=== PATIENT | male | born 1955 | race African-American/Black ===

== ENCOUNTER 2023-03-28 12:56 | Emergency (ER) | payer MEDICARE, SELFPAY ==
--- NOTE | ~2023-03-28 | XR_ITS ---
Clinical Indication: Shortness of breath PA and lateral views of the chest: Comparison: None Findings: Suspected focal hazy opacity right upper lobe. Left lung is clear.. Cardiomediastinal silh ouette is within normal limits. Probable calcified lymph nodes at the upper mediastinum. Bones and so ft tissues are unremarkable. Impression: Suspected subtle focal right upper lobe pneumonia. Calcified lymph nodes in the superior mediastinum. Reviewed, dictated and finalized at location . Impression: Suspected subtle focal right upper lobe pneumonia. Calcified lymph nodes in the superior mediastinum.
--- NOTE | 2023-03-28 13:11 | ED.URI ---
HPI - URI/Sore Throat General Chief Complaint: Upper Respiratory Infection Stated Complaint: SOB/Cough Time Seen by Provider: 03/28/23 13:11 Source: patient Mode of arrival: ambulatory Limitations: no limitations History of Present Illness HPI Narrative: Patient is a 67-year-old male who presents with 3 days of shortness of breath. Patient states he has been using rescue inhaler every 2 hours with worsening shortness of breath at night. Patient states inhaler does work for a short amount of time. Denies being out of inhaler. Does smoke half a pack of cigarettes a day. Denies any congestion, ear pain, sore throat, sinus pressure, fever, chills, nausea, vomiting, diarrhea. Is still able to speak in full sentences. History of COPD, pneumonia, high blood pressure. Related Data Home Medications Medication Instructions Recorded Confirmed albuterol sulfate 90 mcg/actuation inhalation 03/28/23 aerosol inhaler amlodipine 10 mg tablet mg 03/28/23 aspirin 81 mg chewable tablet 03/28/23 clonidine HCl 0.3 mg tablet mg 03/28/23 gabapentin 300 mg capsule mg 03/28/23 metoprolol tartrate 25 mg tablet mg 03/28/23 triamterene 37.5 tablet 03/28/23 mg-hydrochlorothiazide 25 mg tablet Allergies Allergy/AdvReac Type Severity Reaction Status Date / Time No Known Allergies Allergy Verified 03/28/23 13:24 Review of Systems Review of Systems: All systems reviewed & are unremarkable except as noted in HPI and below Constitutional: Constitutional: Denies body ache(s), Denies chills, Denies fatigue, Denies fever(s), Denies headache(s), Denies malaise and Denies weakness Eyes: Eyes: Denies blurry vision, Denies itchy eyes and Denies loss of vision ENT: Denies otalgia, Denies headache(s), Denies nasal congestion, Denies sinus pain and Denies sore throat Cardiovascular: Cardiovascular: Denies chest pain, Denies irregular heart rhythm and Reports dyspnea Respiratory: Respiratory: Reports cough and Reports dyspnea Gastrointestinal: Gastrointestinal: Denies abdominal pain, Denies diarrhea, Denies nausea and Denies vomiting Musculoskeletal: Musculoskeletal: Denies back pain, Denies myalgias and Denies arthralgias Integumentary/Breasts: Skin/Breast: Denies pruritus and Denies rash Neurologic: Denies headache(s), Denies loss of vision and Denies weakness Psychiatric: Psychiatric: Reports no additional psychiatric complaints Endocrine: Endocrine: Denies fatigue Allergic/Immunologic: Allergic/Immunologic: Denies itchy eyes PMFSH Comments At time of signature, agree with nursing past medical, surgical, social and family history. There is no relevant family history pertinent to the presenting complaint. Exam Const: General: cooperative, healthy appearing, comfortable, no acute distress and well nourished Nutritional Appearance: well nourished Orientation/consciousness: patient oriented x3 Limitations: no limitations HENMT: Head: normal to inspection, normocephalic and atraumatic Ears: hearing grossly normal bilaterally, external ears normal, TM's normal bilaterally, EAC's normal and no periauricular adenopathy Face/Nose/Sinus: Normal external nose present, Normal nasal mucous membranes and turbinates present, normal facial exam, sinuses nontender and face symmetric Face and sinus: normal facial exam, sinuses nontender and face symmetric Mouth: Yes Normal oral and palatal mucosa present, Yes lip normal, Yes tongue normal, Yes Normal salivary glands and ducts present, Yes oropharynx normal and Yes moist mucous membranes Teeth and gingiva: dentition normal Throat: posterior oropharynx normal, tonsils normal and uvula midline Eyes: General: appearance normal, both eyes and all related structures Alignment and Position: alignment normal and position normal Periorbital: periorbital findings normal Eyelids: eyelids normal Pupils: Equal, round and reactive pupils present Neck: Neck: normal visual inspection, full ROM, no lymphad
[2023-03-28 13:16] VITALS: BP 167/80; PULSE 85; RESP 24; RESP 28; TEMP 37.1; O2SAT 92; O2SAT 94
[2023-03-28 13:25] VITALS: BP 167/80; PULSE 85; RESP 28; TEMP 37.1; O2SAT 92
[2023-03-28] MEDS: ALBUTEROL SULFATE NEB 2.5 MG/3 ML INH INHALATION (13:32)
[2023-03-28] MEDS: IPRATROPIUM BR 0.02% INH SOLN 0.5 MG/2.5 ML VIAL INHALATION (13:32)
[2023-03-28 15:29] VITALS: RESP 22; O2SAT 96
== END 2023-03-28 15:04 | disposition home or self-care (01) ==
PROVIDERS: Emergency Provider Nurse Practitioner Family
DX: J18.1 Lobar pneumonia, unspecified organism (principal); I10 Essential (primary) hypertension; J44.9 Chronic obstructive pulmonary disease, unspecified
CPT/HCPCS: 71046; 94640; 99203; G0463

== ENCOUNTER 2023-03-28 23:36 | Inpatient (IN) | payer MEDICARE, SELFPAY ==
--- NOTE | ~2023-03-28 | XR_ITS ---
Portable chest x-ray Comparison: 03/28/2023 at 2:29 PM Clinical History: Dyspnea Findings: Probable minimal developing bibasilar pulmonary edema. Underlying COPD is likely present. Cardiomediastinal silhouette is stable. Bones and soft tissues are unremarkable. Impression: Probable minimal developing bibasilar pulmonary edema. Underlying COPD. Reviewed, dictated and finalized at [facility]. Impression: Probable minimal developing bibasilar pulmonary edema. Underlying COPD.
[2023-03-28 23:38] VITALS: BP 184/86; PULSE 120; RESP 28; O2SAT 100
[2023-03-28 23:42] VITALS: PULSE 120
--- NOTE | 2023-03-28 23:48 | ECG_ITS ---
Measurements Intervals [place] Rate: 113 P: 80 SC: 196 QRS: -2 QRSD: 106 T: 84 QT: 299 QTc: 411 Interpretive Statements SINUS TACHYCARDIA INCOMPLETE RIGHT BUNDLE BRANCH BLOCK CONSIDER INFERIOR INFARCT, AGE INDETERMINATE ST-T WAVE ABNORMALITY IN LATERAL LEADS- CONSIDER ISCHEMIA ABNORMAL ECG NO PREVIOUS ECG AVAILABLE FOR COMPARISON Electronically Signed On 03-31-2023 21:53:49 CDT by Chad Pereira D.O.
[2023-03-29] VITALS (60 sets, daily range): BP systolic 139–189; BP diastolic 75–102; PULSE 72–117; RESP 12–33; TEMP 36.7–37; O2SAT 94–100; BMI 33.7
[2023-03-29] MEDS: LEVALBUTEROL NEB 1.25 MG/3 ML INHALATION
--- NOTE | 2023-03-29 | ECHO_ITS ---
Patient Info Name: Krish Argueat Age: 67 years : 1955 Gender: Male Ht: 69 in Wt: 227 lbs BSA: 2.27 m2 HR: 80 bpm BP: 142 / 84 mmHg Technical Quality: Good Exam Date: 03/29/2023 2:38 PM Exam Location: [facility] Pulmonary Patient Status: Inpatient Admit Date: 03/29/2023 Staff Ordering Physician: Kriss Adler DO Truck Engine Assembler: Ami Vargas RDCS Attending Provider: Jaiden Rodrigues MD Referring Physician: Nayely MATTHEWS; Exam Type: CA echo doppler color flow Study Info Indications R60.9 - Edema, unspecified R06.02 - Shortness of breath Complete two-dimensional, color flow and Doppler transthoracic echocardiogram is performed. Summary 1. Complete two-dimensional, color flow and Doppler transthoracic echocardiogram is performed. 2. Left ventricular chamber dimension is normal. 3. Left ventricular systolic function is normal, estimated at 60-65%. 4. The left ventricular diastolic function is grade I diastolic dysfunction. 5. E/e' 8 is minimally elevated. 6. Global longitudinal strain is normal at -20.2%. 7. There is mild aortic valve sclerosis. 8. No pulmonary hypertension, estimated pulmonary arterial systolic pressure is 18 mmHg. Left Ventricle E/e' 8 is minimally elevated. Global longitudinal strain is normal at -20.2%. Left ventricular chamber dimension is normal. Left ventricular systolic function is normal, estimated at 60-65%. The left ventricular diastolic function is grade I diastolic dysfunction. Right Ventricle Right ventricular chamber dimension is normal. Right ventricular systolic function is normal. Left Atria Left atrial chamber dimension is normal. Right Atria Right atrial chamber dimension is normal. Aortic Valve The aortic valve is trileaflet. There is mild aortic valve sclerosis. There is no aortic valve stenosis. There is no aortic valve regurgitation. Pulmonic Valve There is no pulmonic regurgitation. Mitral Valve There is no mitral valve stenosis. There is no mitral valve regurgitation. Tricuspid Valve There is no tricuspid valve regurgitation. No pulmonary hypertension, estimated pulmonary arterial systolic pressure is 18 mmHg. Pericardium/Pleural There is no pericardial effusion. Inferior Vena Cava Normal inferior vena cava with >50% collapse upon inspiration consistent with normal right atrial pressure, 5 mmHg. Aorta The aortic root size at the sinus of Valsalva is normal. Left Ventricular Outflow Tract Name Value Normal LVOT 2D LVOT Diameter 2.0 cm LVOT Doppler LVOT Peak Gradient 6 mmHg LVOT Mean Gradient 3 mmHg LVOT VTI 25 cm LVOT VTI/AV VTI Ratio 0.9 LVOT Stroke Volume 80 ml LVOT CO 6.7 l/min LVOT CI 2.9 l/min/m2 Pulmonic Valve Name Value Normal RVOT Doppler RV
[2023-03-29] MEDS: methylPREDNISolone SOD SUCC 125 MG VIAL IV PUSH (00:27)
[2023-03-29 00:49] LABS: Basophils Percent Auto 0.2 % (0.2-1.2); Eosinophils Percent Auto 0.2 % (0-4.4); Hematocrit 40.5 % (42.0-52.0); Hemoglobin 13.4 g/dL (14.0-18.0); Immature Granulocyte Absolute 0.07 K/mm3 (0.00-0.031); Immature Granulocyte Percent A 0.4 % (0-0.5); Lymphocytes Absolute Auto 2.13 K/mm3 (0.9-3.2); Lymphocytes Percent Auto 13.3 % (18.3-44.2); Mean Corpuscular HGB Conc 33.1 g/dl (32-36); Mean Corpuscular Hemoglobin 29.3 pg (26-34); Mean Corpuscular Volume 88.6 fl (80-100); Mean Platelet Volume 10.2 fl (7.4-10.4); Monocytes Absolute Auto 1.5 K/mm3 (0.1-0.6); Monocytes Percent Auto 9.2 % (2.6-8.5); Neutrophils Absolute Auto 12.2 K/mm3 (1.3-6.7); Neutrophils Percent Auto 76.7 % (45.5-73.1); Platelet Count Result 216 k/mm3 (150-375); Red Blood Count 4.57 M/mm3 (4.6-6.20); Red Cell Distribution Width 13.7 % (11.5-14.5)
[2023-03-29 01:01] LABS: INR 1.2; Prothrombin Time 15.4 Seconds (11.1-14.7)
[2023-03-29 01:02] LABS: Partial Thromboplastin Time 39.8 SECONDS (22.3-36.8)
[2023-03-29 01:03] LABS: Alanine Aminotransferase 20 U/L (6-50); Albumin Level 4.5 g/dL (3.5-5.1); Alkaline Phosphatase 103 U/L (38-126); Anion Gap 7 mmol/L (8-16); Aspartate Amino Transferase 35 U/L (17-59); Bilirubin,Total 0.5 mg/dL (0.2-1.3); Blood Urea Nitrogen 17 mg/dL (9-20); Calcium 9.2 mg/dL (8.4-10.2); Carbon Dioxide 29 mmol/L (22-30); Chloride 104 mmol/L (98-107); Estimated CRCL calculation 67 ml/min; Estimated Glomerular Filt Rate > 60; Glucose 110 mg/dL (65-110); Magnesium 1.7 mg/dL (1.6-2.3); Potassium 3.2 mmol/L (3.4-5.0); Sodium 140 mmol/L (137-145)
[2023-03-29 01:04] LABS: Lactic Acid Reflex 1.1 mmol/L (0.7-2.0)
[2023-03-29 01:14] LABS: NT Pro B Type Natriuretic Pept 431 pg/mL (19.9-100); Troponin I < 0.012 ng/mL (0.000-0.034)
[2023-03-29 01:29] LABS: Influenza A QL RT-PCR Negative (Negative); Influenza B QL RT-PCR Negative (Negative); RSV RNA, RT-PCR Negative (Negative); SARS-CoV-2 RNA PCR Negative (Negative)
--- NOTE | 2023-03-29 01:31 | ED.GENADULT ---
HPI - General Adult General Chief complaint: Shortness of Breath/Dyspnea Stated complaint: sob Time Seen by Provider: 03/28/23 23:45 History of Present Illness HPI narrative: Patient is a 67-year-old gentleman who presents to the emergency department with chief complaint of shortness of breath. Patient [facility] that [facility] and was diagnosed with pneumonia. Patient reports he is taking antibiotics and was started on steroids the patient states he went home was doing okay and reports that now he started getting more more short of breath EMS was called and the patient was saturating 90% on room air but was extremely tachypneic received a DuoNeb by EMS and upon arrival to the emergency department was still having moderate tachypnea even on the nebulizer. Patient reports the cough been nonproductive Related Data Home Medications Medication Instructions Recorded Confirmed albuterol sulfate 90 mcg/actuation inhalation 03/28/23 aerosol inhaler amlodipine 10 mg tablet mg 03/28/23 aspirin 81 mg chewable tablet 03/28/23 clonidine HCl 0.3 mg tablet mg 03/28/23 gabapentin 300 mg capsule mg 03/28/23 metoprolol tartrate 25 mg tablet mg 03/28/23 triamterene 37.5 tablet 03/28/23 mg-hydrochlorothiazide 25 mg tablet Allergies Allergy/AdvReac Type Severity Reaction Status Date / Time No Known Allergies Allergy Verified 03/28/23 23:43 Review of Systems Review of Systems: A 10 system review of systems was completed on the patient and is negative except for what is stated in the HPI. Nursing and ancillary documentation was reviewed. Exam Narrative: GENERAL: Well-appearing, well-nourished, and in mild acute respiratory distress. HEAD: Normocephalic, atraumatic. EYES: PERRLA and EOMI. ENT: Nares clear, no rhinorrhea or epistaxis. Mucous membranes moist. NECK: Supple. CHEST: Diminished breath sounds to auscultation bilaterally, scattered wheezes. Mild respiratory distress. HEART: Regular rate and rhythm. No murmur heard. Normal peripheral pulses. ABDOMEN: Soft, nontender, nondistended, normal active bowel sounds. EXTREMITIES: Normal range of motion. No edema. SKIN: Warm, dry, no rash. NEURO: No focal deficits. Alert and oriented x3. PSYCH: Normal mood and affect. Course Vital Signs Vital signs: Vital Signs Pulse Rate 120 H 03/28/23 23:38 Respiratory Rate 28 H 03/28/23 23:38 Blood Pressure 184/86 H 03/28/23 23:38 Pulse Oximetry 100 03/28/23 23:38 Oxygen Delivery Non-Rebreather Mask 03/28/23 23:38 Oxygen Flow Rate 10 03/28/23 23:38 Pulse Rate 88 03/29/23 02:41 Respiratory Rate 12 03/29/23 02:41 Blood Pressure 178/96 H 03/29/23 02:41 Pulse Oximetry 100 03/29/23 02:41 Oxygen Delivery BiPAP 03/29/23 00:00 Oxygen Flow Rate 10 03/28/23 23:38 Medical Decision Making MDM Narrative Medical decision making narrative: Differential diagnosis includes pneumonia, ACS, CHF, COPD exacerbation, Patient was extremely tachypneic on original arrival and was in moderate respiratory distress. Patient was placed on BiPAP upon arrival which had significant improvement. The patient has been able to be weaned off of BiPAP and is now doing much better and is on 2 L nasal cannula. EKG is sinus tachycardia rate of 113 nonspecific incomplete right bundle branch block no ST elevation or ST depression Laboratory studies were obtained which showed a white count of 16 electrolytes showed a BNP of 431 Pro-Richard 0.2 initial troponin was less than 0.012 repeat troponin is 0.021. Chest x-ray redemonstrates the findings on the chest x-ray from urgent care yesterday The patient was given Solu-Medrol in the emergency department and was given Rocephin and Zithromax. The case was discussed with the hospitalist and the patient be admitted to the hospitalist service. Vital Signs Vital Signs: Vital Signs Pulse Rate 120 H 03/28/23 23:38 Respiratory Rate 28 H 0
[2023-03-29 01:41] LABS: Appearance Urine Clear (Clear); Bacteria Urine None Seen /hpf; Bilirubin Urine Negative (Negative); Blood Urine 1+ (Negative); Color Urine Yellow (Yellow); Glucose Urine UA Negative (Negative); Ketones Urine Negative (Negative); Leukocyte Esterase Ur Negative LEU/UL (Negative); Nitrate Urine Negative (Negative); Non Pathogenic Casts 0-2; Protein Urine 3+ mg/dL (Negative); Specific Grav Ur 1.016 (1.001-1.035); Squamous Epithelial Cell Urine None seen /hpf (Few); Urobilinogen Urine 0.2 mg/dL (<2.0); WBC Urine 0-5 /hpf
[2023-03-29 01:52] LABS: Add Urine Microscopic? YES
[2023-03-29 01:56] LABS: Procalcitonin 0.2 ng/mL
[2023-03-29 03:23] LABS: Troponin I 0.021 ng/mL (0.000-0.034)
[2023-03-29] MEDS: AZITHROMYCIN 500 MG/NS 250 ML 500 MG/250 ML BAG 250 MG IVPB (04:38)
[2023-03-29] MEDS: methylPREDNISolone SOD SUCC 125 MG VIAL 60 MG IV PUSH ×3 (07:00→21:31)
--- NOTE | 2023-03-29 08:55 | PM.IMHP ---
H&P: HPI History of Present Illness Date/Time: 03/29/23 08:55 Chief Complaint: sob Narrative: 67-year-old male presenting with shortness of breath after being diagnosed with pneumonia at urgent care yesterday. He was given antibiotics and steroids but is continuing to feel progressively more short of breath and weak. In the ER, he was found to be 90% on room air and quite tachypneic. He initially was placed on BiPAP due to respiratory distress, was able to be weaned to 2 L nasal cannula after DuoNeb. EKG was tachycardic with an incomplete right bundle branch block but no signs of acute ischemia. Troponin was negative x2. He was started on Solu-Medrol, Rocephin, azithromycin. Chest x-ray showed edema with COPD, no infiltrate. Chest x-ray from 03/28 showed possible right upper lobe infiltrate. Personal evaluation of the chest x-ray does look like possible infiltrate in right upper lobe on both chest x-rays. Cephalized edema, while present, appears minimal. Hyperinflation consistent with COPD noted. Review of Systems Review of Systems: 12 point review of systems was assessed and was negative except as noted in the HPI [facility] Past Medical History Medical History COPD (chronic obstructive pulmonary disease) Heart failure Hypertension Nicotine dependence Family History Family History Grandparent Diabetes mellitus Father Cancer Mother Hypertension Social History Social History Smoking packs per day: 0.5 Smoking cigarettes per day: 10.0 Years smoked: 40 Smoking pack-years: 20.00 Smoking status: Current every day smoker Tobacco type: cigarettes Alcohol intake: current Drinks per week: 2 Substance use: current Substance use type: marijuana Last use: 1 month ago Lack of Transportation: No Lack of Food: Never True Current Housing: I Have Housing Concerned About Future Housing: No Difficulty Paying Gas/Electric Bills: No Difficulty Paying for Meds: No Currently Unemployed: No Education: Don't Know Difficulty w/ Childcare or Family Care: No Spiritual care concerns: No Meds Home Medications and Allergies Home Medications Medication Instructions Recorded Confirmed Type albuterol sulfate 2.5 mg/0.5 mL 5 mg inhalation Q6H PRN shortness 03/28/23 03/29/23 Rx solution for nebulization of breath or wheezing #30 ea albuterol sulfate 90 mcg/actuation 2 puff inhalation Q1-4H PRN 03/28/23 03/29/23 History aerosol inhaler Shortness Of Breath amlodipine 10 mg tablet 10 mg PO DAILY 03/28/23 03/29/23 History amoxicillin 875 mg-potassium 1 tablet PO BID 10 days #20 tabs 03/28/23 Rx clavulanate 125 mg tablet aspirin 81 mg chewable tablet 81 mg PO DAILY 03/28/23 03/29/23 History clonidine HCl 0.3 mg tablet 0.3 mg PO BID 03/28/23 03/29/23 History doxycycline monohydrate 100 mg 100 mg PO BID 5 days #10 tabs 03/28/23 Rx tablet gabapentin 300 mg capsule 600 mg PO TID 03/28/23 03/29/23 History ipratropium bromide 0.02 % 2.5 ml inhalation Q6H PRN 03/28/23 Rx solution for inhalation shortness of breath or wheezing #75 mL methylprednisolone 4 mg tablets in See Rx Instructions PO .COMPLEX 03/28/23 Rx a dose pack (gauzzrol (Abilio)) #21 ea metoprolol tartrate 25 mg tablet 25 mg PO BID 03/28/23 03/29/23 History nebulizer and compressor #1 ea 03/28/23 Rx triamterene 37.5 1 tablet PO DAILY 03/28/23 03/29/23 History mg-hydrochlorothiazide 25 mg tablet apixaban 5 mg tablet (Eliquis) 5 mg PO BID 03/29/23 03/29/23 History hydrocodone 7.5 mg-acetaminophen 1 tablet PO TID PRN Pain 03/29/23 03/29/23 History 325 mg tablet tamsulosin 0.4 mg BYMOUTH DAILY 03/29/23 03/29/23 History Allergies Allergy/AdvReac Type Severity Reaction Status Date / Time No Known Allergies Allergy Verified 03/28/23 23:43 V
[2023-03-29] MEDS: IPRATROPIUM BR 0.02% INH SOLN 0.5 MG/2.5 ML VIAL INHALATION ×4 (09:15→21:29)
[2023-03-29] MEDS: LEVALBUTEROL NEB 1.25 MG/3 ML 0.63 MG INHALATION ×3 (09:15→21:29)
[2023-03-29] MEDS: HYDROcodone/acetaminophen (*CRX) 7.5-325 MG TABLET 1 TAB PO ×3 (09:26→20:22)
[2023-03-29 09:41] LABS: Lactic Acid Reflex 1.5 mmol/L (0.7-2.0)
[2023-03-29 09:52] LABS: D Dimer 0.69 ug/mL (<0.48)
[2023-03-29 09:56] LABS: Troponin I 0.018 ng/mL (0.000-0.034)
[2023-03-29 10:02] LABS: Procalcitonin 0.2 ng/mL
[2023-03-29 10:28] LABS: CRP 17.2 mg/dL (<1.0)
[2023-03-29] MEDS: BUDESONIDE RESPULE NEB 0.5 MG/2 ML AMP INHALATION ×2 (11:02→21:29)
--- NOTE | 2023-03-29 12:21 | ADMGEN ---
This patient, Krish Argueta, was admitted to Medical Room 251-01. Patient/family oriented to hospital policies and general routines including ID bracelet, bed and alarms, visiting hours, pain management, procedures, bathroom and other care routines, personal items, smoking policy, room service/diet, and visiting hours. Information on how to activate the Rapid Response Team has been discussed. Patient/Family are encouraged to report perceived risks to care and to ask questions if they do not understand what they are told or what they should do.
[2023-03-29] MEDS: guaiFENesin 600 MG/DEXTROMETHORPHAN 30 MG SR TAB 12 HR 1 TAB PO ×2 (15:23→20:21)
[2023-03-29] MEDS: amLODIPine BESYLATE 5 MG TABLET 10 MG PO (15:23)
[2023-03-29] MEDS: GABAPENTIN 300 MG CAPSULE 600 MG PO (15:23)
[2023-03-29] MEDS: ALBUTEROL SULFATE NEB 2.5 MG/3 ML INH 5 MG INHALATION (18:05)
[2023-03-29] MEDS: APIXABAN 5 MG TABLET PO (20:21)
[2023-03-29] MEDS: METOPROLOL TARTRATE 25 MG TABLET PO (20:21)
[2023-03-29] MEDS: cloNIDine HCL 0.1 MG TABLET 0.3 MG PO (20:22)
[2023-03-30] VITALS (12 sets, daily range): BP systolic 127–143; BP diastolic 69–78; PULSE 64–100; RESP 14–24; TEMP 36.9–37; O2SAT 94–99
[2023-03-30] MEDS: IPRATROPIUM BR 0.02% INH SOLN 0.5 MG/2.5 ML VIAL INHALATION ×3 (02:10→12:39)
[2023-03-30] MEDS: LEVALBUTEROL NEB 1.25 MG/3 ML 0.63 MG INHALATION ×3 (02:10→12:39)
[2023-03-30] MEDS: methylPREDNISolone SOD SUCC 125 MG VIAL 60 MG IV PUSH ×2 (05:06→13:18)
[2023-03-30] MEDS: HYDROcodone/acetaminophen (*CRX) 7.5-325 MG TABLET 1 TAB PO ×2 (05:46→12:48)
[2023-03-30] MEDS: BUDESONIDE RESPULE NEB 0.5 MG/2 ML AMP INHALATION (07:10)
--- NOTE | 2023-03-30 09:15 | PM.IMPN ---
Progress Note: A&P Assessment and Plan (1) COPD (chronic obstructive pulmonary disease): Code(s): J44.9 - Chronic obstructive pulmonary disease, unspecified Status: Acute Assessment and Plan: nebs, steroids, smoking cessation recommended, nicorette available Will need outpatient PFTs at discharge 03/30: Weaned to room air today (2) Heart failure: Code(s): I50.9 - Heart failure, unspecified Status: Acute Assessment and Plan: Appears euvolemic Echo 03/29 showed EF 60-65%, grade 1 diastolic dysfunction, no valvular disease nor pulmonary hypertension noted (3) Nicotine dependence: Code(s): F17.200 - Nicotine dependence, unspecified, uncomplicated Status: Acute Assessment and Plan: smoking cessation recommended, nicotine patch offered, requested nicorette instead, patch gives him a rash (4) Hypertension: Code(s): I10 - Essential (primary) hypertension Status: Acute Assessment and Plan: blood pressures reviewed 03/30 Stable on home medications, continue triamterene/hydrochlorothiazide, amlodipine, clonidine (5) Community acquired pneumonia: Qualifiers: Laterality: unspecified laterality Qualified Code(s): J18.9 - Pneumonia, unspecified organism Code(s): J18.9 - Pneumonia, unspecified organism Status: Acute Assessment and Plan: cont rocephin + azithromycin, started 03/28, end date for azithromycin 04/01, end date for Rocephin (cefdinir at discharge) 04/03 Plan DVT prophylaxis with SCDs GI prophylaxis not indicated Code status full code Subjective Date/time seen: 03/30/23 09:15 Interval history: 67-year-old male presenting with shortness of breath after being diagnosed with pneumonia at urgent care, found to have COPD, CAP and suspected HF. No overnight events noted. No chest pain or shortness of breath. No nausea, vomiting or diarrhea. No fevers or chills. Review of Systems Review of Systems: 12 point review of systems was assessed and was negative except as noted in the HPI Exam Narrative: General: No acute distress, alert and oriented per baseline HEENT: Atraumatic, normocephalic, mucous membranes moist CV: Regular rate and rhythm, S1, S2 Lungs: Diminished air entry, scattered wheezes Abdomen: Soft, nontender, nondistended Extremities: Normal to inspection, trace edema, non pitting Skin: No rashes noted, no lesions or wounds seen Psych: Euthymic, normal affect Objective Data Vital Signs Vital Signs: Vital Signs - 24 hr 03/29/23 09:17 03/29/23 09:24 03/29/23 09:25 Temperature Pulse Rate Respiratory Rate 22 H Blood Pressure Pulse Oximetry 98 100 Oxygen Delivery Nasal Cannula Oxygen Flow Rate 2 Fraction of Inspired Oxygen 03/29/23 09:35 03/29/23 10:08 03/29/23 10:15 Temperature Pulse Rate Respiratory Rate Blood Pressure Pulse Oximetry 100 99 100 Oxygen Delivery Oxygen Flow Rate Fraction of Inspired Oxygen 03/29/23 10:57 03/29/23 11:53 03/29/23 13:02 Temperature 98.6 F Pulse Rate 74 Respiratory Rate 18 Blood Pressure 139/86 142/84 H Pulse Oximetry 98 100 97 Oxygen Delivery Nasal Cannula Oxygen Flow Rate 2 Fraction of Inspired Oxygen 03/29/23 12:25 03/29/23 14:11 03/29/23 14:00 Temperature 98.0 F 98.3 F Pulse Rate 76 74 78 Respiratory Rate 20 20 18 Blood Pressure 153/92 H 151/89 H Pulse Oximetry 98 97 Oxygen Delivery Oxygen Flow Rate Fraction of Inspired Oxygen 03/29/23 16:00 03/29/23 18:05 03/29/23 18:12 Temperature Pulse Rate 78 90 88 Respiratory Rate 18 20 Blood Pressure Pulse Oximetry Oxygen Delivery Oxygen Flow Rate Fraction of Inspired Oxygen 03/29/23 20:12 03/29/23 20:21 03/29/23 20:00 Temperature 98.6 F Pulse Rate 92 86 91 Respiratory Rate 20 Blood Pressure 173/78 H Pulse Oximetry 94 Oxygen Delivery
[2023-03-30] MEDS: guaiFENesin 600 MG/DEXTROMETHORPHAN 30 MG SR TAB 12 HR 1 TAB PO (09:33)
[2023-03-30] MEDS: amLODIPine BESYLATE 5 MG TABLET 10 MG PO (09:34)
[2023-03-30] MEDS: METOPROLOL TARTRATE 25 MG TABLET PO (09:34)
[2023-03-30] MEDS: APIXABAN 5 MG TABLET PO (09:34)
[2023-03-30] MEDS: ASPIRIN 81 MG CHEWABLE TABLET PO (09:34)
[2023-03-30] MEDS: TRIAMTERENE 37.5 MG/HCTZ 25 MG (MAXZIDE) TABLET 1 TAB PO (09:35)
[2023-03-30] MEDS: GABAPENTIN 300 MG CAPSULE 600 MG PO ×2 (09:35→12:49)
[2023-03-30] MEDS: cloNIDine HCL 0.1 MG TABLET 0.3 MG PO (09:35)
[2023-03-30] MEDS: TAMSULOSIN HCL 0.4 MG CAPSULE BY MOUTH (09:35)
[2023-03-30] MEDS: NICOTINE (*PBKC) 2 MG GUM PO (09:36)
[2023-03-30] MEDS: ACETAMINOPHEN 325 MG TABLET 650 MG PO (09:42)
[2023-03-30] MEDS: AZITHROMYCIN 500 MG/NS 250 ML 500 MG/250 ML BAG 250 MG IVPB (09:44)
--- NOTE | 2023-03-30 09:48 | PM.DS ---
DS: Admitting Diagnosis Discharge Date 03/30/23 Admitting Diagnosis sob DS: Discharge Diagnosis Discharge Diagnosis (1) COPD (chronic obstructive pulmonary disease): Code(s): J44.9 - Chronic obstructive pulmonary disease, unspecified Status: Acute Assessment and Plan: nebs, steroids, smoking cessation recommended, nicorette available Will need outpatient PFTs at discharge and sleep study for likely sleep apnea 03/30: Weaned to room air today (2) Heart failure: Code(s): I50.9 - Heart failure, unspecified Status: Acute Assessment and Plan: Appears euvolemic Echo 03/29 showed EF 60-65%, grade 1 diastolic dysfunction, no valvular disease nor pulmonary hypertension noted (3) Nicotine dependence: Code(s): F17.200 - Nicotine dependence, unspecified, uncomplicated Status: Acute Assessment and Plan: smoking cessation recommended, nicotine patch offered, requested nicorette instead, patch gives him a rash (4) Hypertension: Code(s): I10 - Essential (primary) hypertension Status: Acute Assessment and Plan: blood pressures reviewed 03/30 Stable on home medications, continue triamterene/hydrochlorothiazide, amlodipine, clonidine (5) Community acquired pneumonia: Qualifiers: Laterality: unspecified laterality Qualified Code(s): J18.9 - Pneumonia, unspecified organism Code(s): J18.9 - Pneumonia, unspecified organism Status: Acute Assessment and Plan: cont rocephin + azithromycin, started 03/28, end date for azithromycin 04/01, end date for Rocephin (cefdinir at discharge) 04/03 Plan DVT prophylaxis with SCDs GI prophylaxis not indicated Code status full code DS: Summary Hospital Course Hospital Course: 67-year-old male presenting with shortness of breath after being diagnosed with pneumonia at urgent care yesterday.? He was given antibiotics and steroids but is continuing to feel progressively more short of breath and weak. He was started on abx, steroids and nebs and improved significantly. Echo 03/29 showed EF 60-65%, grade 1 diastolic dysfunction, no valvular disease nor pulmonary hypertension noted. He will need PFTs for his COPD and was d/c on spiriva, abx, and prednisone. He did have some nocturnal hypoxia noted, likely from sleep apnea. He will need a sleep study as an outpatient for suspected sleep apnea. Time Spent with Patient Time attestation: Total time spent providing and/or coordinating discharge services: Exam Narrative: General: No acute distress, alert and oriented per baseline HEENT: Atraumatic, normocephalic, mucous membranes moist CV: Regular rate and rhythm, S1, S2 Lungs: Diminished air entry, scattered wheezes Abdomen: Soft, nontender, nondistended Extremities: Normal to inspection, trace edema, non pitting Skin: No rashes noted, no lesions or wounds seen Psych: Euthymic, normal affect DS: Data Data Completed and Pending Labs on day of discharge: Labs from last 24 hours 03/29/23 09:23 D-Dimer 0.69 H Troponin I 0.018 C-Reactive Protein 17.2 H Procalcitonin 0.2 Preliminary micro results at discharge 03/29/23 00:19 Blood Culture - Preliminary Blood 03/29/23 00:19 Blood Culture - Preliminary Blood Discharge Plan Discharge Attending physician on discharge: Kriss Adler Discharging Clinician: Kriss Adler Patient Disposition: Home, Self-Care Activity: as tolerated Diet: as tolerated Discharge Instructions: You will need to start your new inhaler every day, follow up with your family doctor or a lung doctor for PFTs, testing for COPD. You should also get a sleep study for possible sleep apnea. Take your antibiotics as prescribed. Patient Instructions: Antibiotic Form, Apixaban (By mouth) Stand Alone Forms: General Discharge Information Follow-up/Referrals: PHYSICIAN NOT ON STAFF,NONSTAFF
== END 2023-03-30 15:50 | disposition home or self-care (01) | DRG 190 ==
LOC: ANHED 03-29 03:33 → ANHIMU 03-29 04:01 → ANH2MED 03-29 11:42
PROVIDERS: Admitting Provider Internal Medicine; Emergency Provider Emergency Medicine; Visit Provider Student in an Organized Health Care Education/Training Program
DX: J44.0 Chronic obstructive pulmonary disease with (acute) lower respiratory infection (principal); J18.9 Pneumonia, unspecified organism; I50.32 Chronic diastolic (congestive) heart failure; I11.0 Hypertensive heart disease with heart failure; I45.10 Unspecified right bundle-branch block; G47.30 Sleep apnea, unspecified; F17.210 Nicotine dependence, cigarettes, uncomplicated; Z20.822 Contact with and (suspected) exposure to COVID-19
CPT/HCPCS: 36415; 71045; 71046; 80053; 81001; 83605; 83735; 83880; 84145; 84484; 85025; 85380; 85610; 85730; 86140; 87040; 87637; 93005; 93306; 94002; 94003; 94640; 96365; 96375; 97161; 97165; 99203; 99285; A9270; G0463; J0456; J0696; J2930

== ENCOUNTER 2023-08-19 16:55 | Outpatient (CLI) | payer MEDICARE, SELFPAY ==
--- NOTE | ~2023-08-19 | XR_ITS ---
EXAMINATION: XR chest 2V Exam Date/Time: 08/19/2023 17:05 CDT HISTORY: CHRONIC COUGH Comparison: 03/28/2023. RESULT: Lines, tubes, and devices: None. Lungs and pleura: Emphysematous and senescent change. Cardiomediastinal silhouette: Stable. Calcified mediastinal lymph nodes. Other: No acute osseous or upper abdominal finding. IMPRESSION: No acute cardiopulmonary process. Reviewed, dictated and finalized at location [facility].
== END 2023-08-19 16:56 | disposition home or self-care (01) ==
PROVIDERS: PCP Family Medicine; Visit Provider Family Medicine
DX: R05.9 Cough, unspecified (principal)
CPT/HCPCS: 71046

== ENCOUNTER 2023-09-03 23:57 | Inpatient (IN) | payer MEDICARE, SELFPAY ==
--- NOTE | ~2023-09-03 | XR_ITS ---
Clinical Indication: Shortness of breath PA and lateral views of the chest: Comparison: 08/19/2023 Findings: The lungs are clear, without evidence of focal consolidation or pleural effusion. Cardiome diastinal silhouette is within normal limits. Calcified mediastinal lymph nodes are unchanged. Bones and soft tissues are unremarkable. Impression: No acute abnormality. Calcified mediastinal lymph nodes. Reviewed, dictated and finalized at location . Impression: No acute abnormality. Calcified mediastinal lymph nodes.
[2023-09-04] VITALS (27 sets, daily range): BP systolic 141–181; BP diastolic 71–94; PULSE 65–102; RESP 13–20; TEMP 36.1–36.9; O2SAT 93–98; BMI 32.4
--- NOTE | 2023-09-04 00:44 | ECG_ITS ---
Measurements Intervals Ingram Rate: 70 P: 72 NE: 173 QRS: -2 QRSD: 107 T: 59 QT: 391 QTc: 423 Interpretive Statements SINUS RHYTHM POSSIBLE RIGHT VENTRICULAR CONDUCTION DELAY [RSR (QR) IN V1/V2] COMPARED TO ECG 03/28/2023 23:42:35 SINUS RHYTHM NOW PRESENT Electronically Signed On 09-04-2023 11:19:05 CDT by Brissa Deluca M.D.
[2023-09-04] MEDS: ALBUTEROL SULFATE NEB 2.5 MG/3 ML INH INHALATION ×3 (01:30→20:20)
[2023-09-04] MEDS: IPRATROPIUM BR 0.02% INH SOLN 0.5 MG/2.5 ML VIAL INHALATION ×3 (01:30→20:20)
[2023-09-04] MEDS: methylPREDNISolone SOD SUCC 125 MG VIAL IV PUSH (01:37)
[2023-09-04 01:52] LABS: Basophils Percent Auto 0.4 % (0.2-1.2); Eosinophils Absolute Auto 0.2 K/mm3 (0-0.3); Eosinophils Percent Auto 1.8 % (0-4.4); Hematocrit 39.9 % (42.0-52.0); Hemoglobin 12.7 g/dL (14.0-18.0); Immature Granulocyte Absolute 0.03 K/mm3 (0.00-0.031); Immature Granulocyte Percent A 0.4 % (0-0.5); Lymphocytes Absolute Auto 2.36 K/mm3 (0.9-3.2); Lymphocytes Percent Auto 28.5 % (18.3-44.2); Mean Corpuscular HGB Conc 31.8 g/dl (32-36); Mean Corpuscular Hemoglobin 28.7 pg (26-34); Mean Corpuscular Volume 90.1 fl (80-100); Mean Platelet Volume 10.1 fl (7.4-10.4); Monocytes Absolute Auto 0.8 K/mm3 (0.1-0.6); Monocytes Percent Auto 9.3 % (2.6-8.5); Neutrophils Absolute Auto 4.9 K/mm3 (1.3-6.7); Neutrophils Percent Auto 59.6 % (45.5-73.1); Platelet Count Result 233 k/mm3 (150-375); Red Blood Count 4.43 M/mm3 (4.6-6.20); Red Cell Distribution Width 14.5 % (11.5-14.5); White Blood Count 8.3 K/mm3 (4.5-10.0)
[2023-09-04 01:59] LABS: Appearance Urine Clear (Clear); Bacteria Urine None Seen /hpf; Bilirubin Urine Negative (Negative); Blood Urine 1+ (Negative); Color Urine Yellow (Yellow); Glucose Urine UA Negative (Negative); Ketones Urine Negative (Negative); Leukocyte Esterase Ur Negative LEU/UL (Negative); Nitrate Urine Negative (Negative); Non Pathogenic Casts 0-2; Protein Urine 3+ mg/dL (Negative); Specific Grav Ur 1.013 (1.001-1.035); Squamous Epithelial Cell Urine Occasional /hpf (Few); Urobilinogen Urine 0.2 mg/dL (<2.0)
[2023-09-04 02:05] LABS: Lactic Acid Reflex 1.4 mmol/L (0.7-2.0)
[2023-09-04 02:08] LABS: Alanine Aminotransferase 31 U/L (6-50); Albumin Level 4.3 g/dL (3.5-5.1); Alkaline Phosphatase 91 U/L (38-126); Anion Gap 5 mmol/L (8-16); Aspartate Amino Transferase 42 U/L (17-59); Bilirubin,Total 0.4 mg/dL (0.2-1.3); Blood Urea Nitrogen 17 mg/dL (9-20); Calcium 9.6 mg/dL (8.4-10.2); Carbon Dioxide 32 mmol/L (22-30); Chloride 100 mmol/L (98-107); Estimated CRCL calculation 63 ml/min; Estimated Glomerular Filt Rate > 60; Glucose 119 mg/dL (65-110); Potassium 3.4 mmol/L (3.4-5.0); Sodium 137 mmol/L (137-145)
[2023-09-04 02:13] LABS: Add Urine Microscopic? YES
[2023-09-04 02:18] LABS: NT Pro B Type Natriuretic Pept 697 pg/mL (19.9-100); Troponin I < 0.012 ng/mL (0.000-0.034)
[2023-09-04 02:23] LABS: Procalcitonin 0.1 ng/mL
[2023-09-04 02:34] LABS: Influenza A QL RT-PCR Negative (Negative); Influenza B QL RT-PCR Negative (Negative); SARS-CoV-2 RNA PCR Positive (Negative)
--- NOTE | 2023-09-04 03:26 | ED.GENADULT ---
HPI - General Adult General Chief complaint: Shortness of Breath/Dyspnea Stated complaint: shortness of breath Time Seen by Provider: 09/04/23 01:08 History of Present Illness HPI narrative: Patient is a 68-year-old gentleman who presents the emergency department with chief complaint of shortness of breath. Patient has history of COPD reports that today he started having significant shortness of breath and was found to be hypoxic by EMS. Patient states he cannot get a good deep breath denies pain denies fever. The patient does report that he has been wheezing at home Related Data Home Medications Medication Instructions Recorded Confirmed albuterol sulfate 90 mcg/actuation 2 puff inhalation Q1-4H PRN 03/28/23 03/29/23 aerosol inhaler Shortness Of Breath amlodipine 10 mg tablet 10 mg PO DAILY 03/28/23 03/29/23 aspirin 81 mg chewable tablet 81 mg PO DAILY 03/28/23 03/29/23 clonidine HCl 0.3 mg tablet 0.3 mg PO BID 03/28/23 03/29/23 gabapentin 300 mg capsule 600 mg PO TID 03/28/23 03/29/23 metoprolol tartrate 25 mg tablet 25 mg PO BID 03/28/23 03/29/23 triamterene 37.5 1 tablet PO DAILY 03/28/23 03/29/23 mg-hydrochlorothiazide 25 mg tablet apixaban 5 mg tablet (Eliquis) 5 mg PO BID 03/29/23 03/29/23 hydrocodone 7.5 mg-acetaminophen 1 tablet PO TID PRN Pain 03/29/23 03/29/23 325 mg tablet tamsulosin 0.4 mg BYMOUTH DAILY 03/29/23 03/29/23 Allergies Allergy/AdvReac Type Severity Reaction Status Date / Time No Known Allergies Allergy Verified 09/04/23 00:11 Review of Systems Review of Systems: A 10 system review of systems was completed on the patient and is negative except for what is stated in the HPI. Nursing and ancillary documentation was reviewed. [facility] Past Medical History Medical History COPD (chronic obstructive pulmonary disease) Heart failure Hypertension Nicotine dependence Family History Family History Grandparent Diabetes mellitus Father Cancer Mother Hypertension Social History Social History Smoking packs per day: 0.5 Smoking cigarettes per day: 10.0 Years smoked: 40 Smoking pack-years: 20.00 Smoking status: Current every day smoker Tobacco type: cigarettes Alcohol intake: current Drinks per week: 2 Substance use: current Substance use type: marijuana Last use: 1 month ago Lack of Transportation: No Lack of Food: Never True Current Housing: I Have Housing Concerned About Future Housing: No Difficulty Paying Gas/Electric Bills: No Difficulty Paying for Meds: No Currently Unemployed: No Education: Don't Know Difficulty w/ Childcare or Family Care: No Spiritual care concerns: No Exam Narrative: GENERAL: Well-appearing, well-nourished, and in no acute distress. HEAD: Normocephalic, atraumatic. EYES: PERRLA and EOMI. ENT: Nares clear, no rhinorrhea or epistaxis. Mucous membranes moist. NECK: Supple. CHEST: Clear to auscultation. No respiratory distress. HEART: Regular rate and rhythm. No murmur heard. Normal peripheral pulses. ABDOMEN: Soft, nontender, nondistended, normal active bowel sounds. EXTREMITIES: Normal range of motion. No edema. SKIN: Warm, dry, no rash. NEURO: No focal deficits. Alert and oriented x3. PSYCH: Normal mood and affect. Course Vital Signs Vital signs: Vital Signs Temperature 36.9 C 09/04/23 00:01 Pulse Rate 93 09/04/23 00:01 Respiratory Rate 19 09/04/23 00:01 Blood Pressure 177/87 H 09/04/23 00:01 Pulse Oximetry 95 09/04/23 00:01 Oxygen Delivery Room Air 09/04/23 00:01 Temperature 36.9 C 09/04/23 00:01 Pulse Rate 75 09/04/23 02:49 Respiratory Rate 20 09/04/23 02:49 Blood Pressure 152/71 H 09/04/23 02:49 Pulse Oximetry 93 09/04/23 02:50 Oxygen Delivery Room Air 1
--- NOTE | 2023-09-04 05:26 | ADMGEN ---
This patient, Krish Argueta, was admitted to 3 [facility] Surg Room 309-01. Patient/family oriented to hospital policies and general routines including ID bracelet, bed and alarms, visiting hours, pain management, procedures, bathroom and other care routines, personal items, smoking policy, room service/diet, and visiting hours. Information on how to activate the Rapid Response Team has been discussed. Patient/Family are encouraged to report perceived risks to care and to ask questions if they do not understand what they are told or what they should do.
--- NOTE | 2023-09-04 08:25 | PM.IMHP ---
H&P: HPI History of Present Illness Date/Time: 09/04/23 08:25 Chief Complaint: Patient is a 68-year-old male with chief complaint of shortness of breath worsening during the day time. Could not catch his breath while ambulating around his house. Narrative: Patient has history of COPD reports that he developed worsening of his shortness of breath?while at home in the afternoon. Patient has felt like he has not been able to shake sickness since April when he traveled to see family. He was able to go to a coffee shop yesterday morning, but subsequently developed worsening of his dyspnea to the point where he couldn't catch his breath just from walking from one room to another in his house. The patient does report that he has been wheezing at home, and has been compliant with his inhalers although has had to use them more frequently. He does not use supplemental oxygen at home. He admits to smoking 1/2 pack per day, wants to quit but just can't seem to do it. He reports he has not been socializing as much and feels some depression. He reports he has talked to someone at the [place] about this, but is not on any medications. He denies any signs of infection, reports no fever, chills, nausea or vomiting. He takes chronic pain medications. He has trouble relying on his at home BP cuff. Review of Systems Review of Systems: All systems reviewed & are unremarkable except as noted in HPI and below Cardiovascular: Cardiovascular: Reports pedal edema Comments: hand swelling Respiratory: Respiratory: Reports dyspnea, Reports dyspnea on exertion and Reports wheezing Psychiatric: Psychiatric: Reports depression PMF Past Medical History Medical History COPD (chronic obstructive pulmonary disease) Heart failure Hypertension Nicotine dependence Family History Family History Grandparent Diabetes mellitus Father Cancer Mother Hypertension Social History Social History Smoking packs per day: 0.5 Smoking cigarettes per day: 10.0 Years smoked: 20 Smoking pack-years: 10.00 Smoking status: Current every day smoker Tobacco type: cigarettes Second hand tobacco smoke exposure: Yes Alcohol intake: current Drinks per week: 2 Substance use: current Substance use type: marijuana Last use: 1 month ago Lack of Transportation: No Lack of Food: Never True Current Housing: I Have Housing Concerned About Future Housing: No Difficulty Paying Gas/Electric Bills: YES Difficulty Paying for Meds: No Currently Unemployed: No Education: Associate Degree Difficulty w/ Childcare or Family Care: No Spiritual care concerns: No Meds Home Medications and Allergies Home Medications Medication Instructions Recorded Confirmed Type albuterol sulfate 2.5 mg/0.5 mL 5 mg inhalation Q6H PRN shortness 03/28/23 09/04/23 Rx solution for nebulization of breath or wheezing #30 ea albuterol sulfate 90 mcg/actuation 2 puff inhalation Q1-4H PRN 03/28/23 09/04/23 History aerosol inhaler Shortness Of Breath amlodipine 10 mg tablet 10 mg PO DAILY 03/28/23 09/04/23 History aspirin 81 mg chewable tablet 81 mg PO DAILY 03/28/23 09/04/23 History clonidine HCl 0.3 mg tablet 0.3 mg PO BID 03/28/23 09/04/23 History gabapentin 300 mg capsule 600 mg PO TID 03/28/23 09/04/23 History ipratropium bromide 0.02 % 2.5 ml inhalation Q6H PRN 03/28/23 09/04/23 Rx solution for inhalation shortness of breath or wheezing #75 mL metoprolol tartrate 25 mg tablet 25 mg PO BID 03/28/23 09/04/23 History nebulizer and compressor #1 ea 03/28/23 09/04/23 Rx triamterene 37.5 1 tablet PO DAILY 03/28/23 09/04/23 History mg-hydrochlorothiazide 25 mg tablet apixaban 5 mg tablet (Eliquis) 5 mg PO BID 03/29/23 09/04/23 History hydrocodone 7.5 mg-acetaminophen 1 tablet PO T
[2023-09-04 08:46] LABS: INR 0.9; Prothrombin Time 12.6 Seconds (11.1-14.7)
[2023-09-04] MEDS: cloNIDine HCL 0.1 MG TABLET 0.3 MG PO ×2 (09:46→20:01)
[2023-09-04] MEDS: TAMSULOSIN HCL 0.4 MG CAPSULE BY MOUTH (09:46)
[2023-09-04] MEDS: ASPIRIN 81 MG CHEWABLE TABLET PO (09:47)
[2023-09-04] MEDS: GABAPENTIN 300 MG CAPSULE 600 MG PO ×3 (09:47→16:27)
[2023-09-04] MEDS: TRIAMTERENE 37.5 MG/HCTZ 25 MG (MAXZIDE) TABLET 1 TAB PO (09:47)
[2023-09-04] MEDS: amLODIPine BESYLATE 5 MG TABLET 10 MG PO (09:47)
[2023-09-04] MEDS: METOPROLOL TARTRATE 25 MG TABLET PO ×2 (09:47→20:01)
[2023-09-04] MEDS: APIXABAN 5 MG TABLET PO ×2 (09:47→20:01)
[2023-09-04] MEDS: HYDROcodone/acetaminophen (*CRX) 7.5-325 MG TABLET 1 TAB PO ×2 (09:52→16:26)
[2023-09-04] MEDS: REMDESIVIR 200 MG/NS 250 ML 200 MG/250 ML BAG 250 MG IVPB (11:07)
--- NOTE | 2023-09-04 17:12 | PC.NURSE ---
Pt is A&O4 male who participates and contributes in plan of care. Pt reports having pain in his back, pt was given norco to treat, and pt responding well. Pt expresses no other needs at this time. Pt has been titrated down to 1L O2 and is tolerating well. Pt has been monitored for any changes in status this shift. Pt has been resting and did get up to chair for part of the day. Will continue to monitor pt.
--- NOTE | 2023-09-04 19:36 | PC.NURSE ---
informed respiratory therapist that pt is requesting neb tx
[2023-09-05] VITALS (20 sets, daily range): BP systolic 136–164; BP diastolic 76–89; PULSE 68–89; RESP 16–20; TEMP 35.9–37.1; O2SAT 95–100
[2023-09-05] MEDS: HYDROcodone/acetaminophen (*CRX) 7.5-325 MG TABLET 1 TAB PO ×4 (01:11→21:35)
[2023-09-05] MEDS: IPRATROPIUM BR 0.02% INH SOLN 0.5 MG/2.5 ML VIAL INHALATION ×4 (02:10→20:04)
[2023-09-05] MEDS: ALBUTEROL SULFATE NEB 2.5 MG/3 ML INH INHALATION ×4 (02:10→20:04)
--- NOTE | 2023-09-05 02:27 | PC.NURSE ---
informed respiratory therapist pt requesting breathing tx.
[2023-09-05 06:13] LABS: Hematocrit 39.5 % (42.0-52.0); Hemoglobin 12.2 g/dL (14.0-18.0); Mean Corpuscular HGB Conc 30.9 g/dl (32-36); Mean Corpuscular Hemoglobin 28.2 pg (26-34); Mean Corpuscular Volume 91.4 fl (80-100); Mean Platelet Volume 9.9 fl (7.4-10.4); Platelet Count Result 232 k/mm3 (150-375); Red Blood Count 4.32 M/mm3 (4.6-6.20); Red Cell Distribution Width 14.6 % (11.5-14.5); White Blood Count 9.9 K/mm3 (4.5-10.0)
[2023-09-05 06:31] LABS: Anion Gap 6 mmol/L (8-16); Blood Urea Nitrogen 22 mg/dL (9-20); Calcium 9.4 mg/dL (8.4-10.2); Carbon Dioxide 29 mmol/L (22-30); Chloride 103 mmol/L (98-107); Estimated CRCL calculation 65 ml/min; Estimated Glomerular Filt Rate > 60; Glucose 183 mg/dL (65-110); Potassium 3.4 mmol/L (3.4-5.0); Sodium 138 mmol/L (137-145)
[2023-09-05 06:35] LABS: NT Pro B Type Natriuretic Pept 680 pg/mL (19.9-100)
[2023-09-05] MEDS: cloNIDine HCL 0.1 MG TABLET 0.3 MG PO ×2 (09:58→21:19)
[2023-09-05] MEDS: ASPIRIN 81 MG CHEWABLE TABLET PO (09:58)
[2023-09-05] MEDS: TAMSULOSIN HCL 0.4 MG CAPSULE BY MOUTH (09:58)
[2023-09-05] MEDS: amLODIPine BESYLATE 5 MG TABLET 10 MG PO (09:58)
[2023-09-05] MEDS: GABAPENTIN 300 MG CAPSULE 600 MG PO ×3 (09:59→16:29)
[2023-09-05] MEDS: METOPROLOL TARTRATE 25 MG TABLET PO ×2 (09:59→21:20)
[2023-09-05] MEDS: TRIAMTERENE 37.5 MG/HCTZ 25 MG (MAXZIDE) TABLET 1 TAB PO (09:59)
[2023-09-05] MEDS: APIXABAN 5 MG TABLET PO ×2 (09:59→21:20)
[2023-09-05] MEDS: REMDESIVIR 100 MG/NS 250 ML 100 MG/250 ML BAG 250 MG IVPB (10:59)
--- NOTE | 2023-09-05 13:09 | PM.IMPN ---
Progress Note: A&P Assessment and Plan (1) Acute hypoxic respiratory failure: Code(s): J96.01 - Acute respiratory failure with hypoxia Status: Acute Assessment and Plan: albuterol nebulizer treatment given in ER and will continue Q6 titrate O2 to sats above 90%, on 2L this am Dexamethasone started in ER, will continue for 10 day course low risk for infection at this time, will not start AB at this time CXR showed lungs are clear, without evidence of focal consolidation or pleural effusion. ?? (2) COPD (chronic obstructive pulmonary disease): Code(s): J44.9 - Chronic obstructive pulmonary disease, unspecified Status: Acute Assessment and Plan: holding LAMA and LABAs for now albuterol nebulizer treatment given in ER and will continue Q6 O2 by nasal cannula, will titrate O2 to sats above 90% PT seeing may need to go home on oxygen, will order home eval prior to discharge (3) COVID-19: Code(s): U07.1 - COVID-19 Status: Acute Assessment and Plan: Started on remdesivir for 5 days as he is high risk with COPD droplet precautions monitor liver panel neb treatments ordered, 02 to titrate to sats above 90% (4) Hypertension: Code(s): I10 - Essential (primary) hypertension Status: Acute Assessment and Plan: continue amlodipine, metoprolol and diuretic home meds for BP control creatinine 1.1 on admission UA culture pending (5) Nicotine dependence: Code(s): F17.200 - Nicotine dependence, unspecified, uncomplicated Status: Acute Assessment and Plan: smokes 1/2 pack a day, discussed smoking cessation may order nicotine patch if needed while inpatient (6) Heart failure: Code(s): I50.9 - Heart failure, unspecified Status: Acute Assessment and Plan: BNP on admission 697, troponin WNL, BNP trending down on 09/05 sodium, calcium and potassium WNL EKG in ER showed SR, possible right ventricular conduction delay continue to monitor labs Subjective Date/time seen: 09/05/23 13:09 Interval history: Patient is a 68-year-old male with chief complaint of shortness of breath worsening during the day time. Could not catch his breath while ambulating around his house.? Patient has history of COPD reports that he developed worsening of his shortness of breath?while at home in the afternoon. Patient has felt like he has not been able to shake sickness since April when he traveled to see family. He was able to go to a coffee shop yesterday morning, but subsequently developed worsening of his dyspnea to the point where he couldn't catch his breath just from walking from one room to another in his house. The patient does report that he has been wheezing at home, and has been compliant with his inhalers although has had to use them more frequently. He does not use supplemental oxygen at home. He admits to smoking 1/2 pack per day, wants to quit but just can't seem to do it. He reports he has not been socializing as much and feels some depression. He reports he has talked to someone at the [place] about this, but is not on any medications.He denies any signs of infection, reports no fever, chills, nausea or vomiting. He takes chronic pain medications. He has trouble relying on his at home BP cuff. Today he is reporting feeling a little worse than yesterday. He is somewhat emotional discussing his loneliness and lack of community since moving to this area 3 years ago. He does not have much family connection and struggles with his loneliness. We discussed importance of smoking cessation for his fpc health with COPD. He does want to quit. He reports that he is having more dyspnea while walking around his room, but able to speak in long, full sentences without distress. He is down to 2L O2 this morning. He would like something to help him sleep. Otherwise, he is understanding of his plan of care. His hand and feet swelling have gone do
--- NOTE | 2023-09-05 18:20 | PC.NURSE ---
Pt is A&O4 male who has participated and contributed in plan of care. Pt reports chronic back pain. Pt up in chair today. Pt on room air and tolerating well. Pt has been monitored for any changes in status. Will continue to monitor pt.
[2023-09-05] MEDS: QUEtiapine FUMARATE 12.5 MG TABLET PO (21:35)
[2023-09-06] VITALS (18 sets, daily range): BP systolic 121–165; BP diastolic 75–96; PULSE 65–80; RESP 16–24; TEMP 36–37.3; O2SAT 93–100
[2023-09-06] MEDS: ALBUTEROL SULFATE NEB 2.5 MG/3 ML INH INHALATION ×4 (02:35→20:04)
[2023-09-06] MEDS: IPRATROPIUM BR 0.02% INH SOLN 0.5 MG/2.5 ML VIAL INHALATION ×4 (02:35→20:04)
[2023-09-06] MEDS: HYDROcodone/acetaminophen (*CRX) 7.5-325 MG TABLET 1 TAB PO ×3 (06:15→21:30)
[2023-09-06 07:08] LABS: Basophils Percent Auto 0.1 % (0.2-1.2); Eosinophils Percent Auto 0.1 % (0-4.4); Hematocrit 39.8 % (42.0-52.0); Hemoglobin 12.4 g/dL (14.0-18.0); Immature Granulocyte Absolute 0.03 K/mm3 (0.00-0.031); Immature Granulocyte Percent A 0.3 % (0-0.5); Lymphocytes Absolute Auto 2.74 K/mm3 (0.9-3.2); Lymphocytes Percent Auto 27.5 % (18.3-44.2); Mean Corpuscular HGB Conc 31.2 g/dl (32-36); Mean Corpuscular Hemoglobin 28.1 pg (26-34); Mean Corpuscular Volume 90.2 fl (80-100); Monocytes Absolute Auto 0.8 K/mm3 (0.1-0.6); Monocytes Percent Auto 7.7 % (2.6-8.5); Neutrophils Absolute Auto 6.4 K/mm3 (1.3-6.7); Neutrophils Percent Auto 64.3 % (45.5-73.1); Platelet Count Result 238 k/mm3 (150-375); Red Blood Count 4.41 M/mm3 (4.6-6.20); Red Cell Distribution Width 14.5 % (11.5-14.5)
[2023-09-06 07:20] LABS: Anion Gap 5 mmol/L (8-16); Blood Urea Nitrogen 23 mg/dL (9-20); Calcium 9.3 mg/dL (8.4-10.2); Carbon Dioxide 31 mmol/L (22-30); Chloride 103 mmol/L (98-107); Estimated CRCL calculation 71 ml/min; Estimated Glomerular Filt Rate > 60; Glucose 104 mg/dL (65-110); Potassium 3.8 mmol/L (3.4-5.0); Sodium 139 mmol/L (137-145)
[2023-09-06 07:28] LABS: NT Pro B Type Natriuretic Pept 287 pg/mL (19.9-100)
[2023-09-06 07:36] LABS: INR 1.1; Prothrombin Time 14.6 Seconds (11.1-14.7)
[2023-09-06] MEDS: CALCIUM CARBONATE (TUMS) 500 MG (200 MG ELEMENTAL) PO (08:24)
[2023-09-06] MEDS: TRIAMTERENE 37.5 MG/HCTZ 25 MG (MAXZIDE) TABLET 1 TAB PO (08:24)
[2023-09-06] MEDS: APIXABAN 5 MG TABLET PO ×2 (08:24→21:30)
[2023-09-06] MEDS: GABAPENTIN 300 MG CAPSULE 600 MG PO ×3 (08:25→17:03)
[2023-09-06] MEDS: ASPIRIN 81 MG CHEWABLE TABLET PO (08:25)
[2023-09-06] MEDS: cloNIDine HCL 0.1 MG TABLET 0.3 MG PO ×2 (08:25→21:29)
[2023-09-06] MEDS: METOPROLOL TARTRATE 25 MG TABLET PO ×2 (08:25→21:30)
[2023-09-06] MEDS: amLODIPine BESYLATE 5 MG TABLET 10 MG PO (08:25)
[2023-09-06] MEDS: TAMSULOSIN HCL 0.4 MG CAPSULE BY MOUTH (08:25)
--- NOTE | 2023-09-06 08:43 | P.PNIM_ITS ---
Progress Note: A&P Assessment and Plan (1) Acute hypoxic respiratory failure: Code(s): J96.01 - Acute respiratory failure with hypoxia Status: Acute Assessment and Plan: 09/05/23: * albuterol nebulizer treatment given in ER and will continue Q6 * titrate O2 to sats above 90%, on 2L this am * Dexamethasone started in ER, will continue for 10 day course * low risk for infection at this time, will not start AB at this time * CXR showed lungs are clear, without evidence of focal consolidation or pleural effusion. ? 09/06/23: * ? continue albuterol nebulizer treatment Q 6, will add p.r.n. albuterol nebulizer as needed for shortness of breaths q.6 * patient is currently on 2 L nasal cannula, he does not use oxygen at home, titrate to keep sats above 92% * continue the dexamethasone and remdesivir, this is day 3 of treatment (2) COPD (chronic obstructive pulmonary disease): Code(s): J44.9 - Chronic obstructive pulmonary disease, unspecified Status: Acute Assessment and Plan: 09/05/23: * holding LAMA and LABAs for now * albuterol nebulizer treatment given in ER and will continue Q6 * O2 by nasal cannula, will titrate O2 to sats above 90% * PT seeing * may need to go home on oxygen, will order home eval prior to discharge 09/06/23: * no change to current treatment plan (3) COVID-19: Code(s): U07.1 - COVID-19 Status: Acute Assessment and Plan: 09/05/23: * Started on remdesivir for 5 days as he is high risk with COPD * droplet precautions * monitor liver panel * neb treatments ordered, 02 to titrate to sats above 90% 09/06/23: * patient is on day 3 of 5 of remdesivir, and 3 of 10 the dexamethasone 6 mg * continue isolation precaution * neb treatments ordered Q 6 hour and p.r.n. * titrate to keep oxygen sats above 92%, patient currently on 2 L nasal cannula (4) Hypertension: Code(s): I10 - Essential (primary) hypertension Status: Acute Assessment and Plan: 09/05/23: * continue amlodipine, metoprolol and diuretic home meds for BP control * creatinine 1.1 on admission * UA culture pending 09/06/23: * blood pressure today ranging 145/88 to 165/96, patient is on all of his home medications * urine culture negative * creatinine 1.0 * continue to monitor (5) Nicotine dependence: Code(s): F17.200 - Nicotine dependence, unspecified, uncomplicated Status: Acute Assessment and Plan: 09/05/23: * smokes 1/2 pack a day, discussed smoking cessation * may order nicotine patch if needed while inpatient 09/06/23: * no change to current treatment plan (6) Heart failure: Code(s): I50.9 - Heart failure, unspecified Status: Acute Assessment and Plan: 09/05/23: * BNP on admission 697, troponin WNL, BNP trending down on 09/05 * sodium, calcium and potassium WNL * EKG in ER showed SR, possible right ventricular conduction delay * continue to monitor labs 09/06/23: * proBNP today is 287 * potassium 3.8, sodium 139 * continue to monitor daily labs * weigh daily Time Spent With Patient Time with patient: 25 - 35 minutes Subjective Date/time seen: 09/06/23 08:43 Interval history: 09/06/2023: Interval history: This is a 68-year-old male who presented to the hospital via EMS with increasing shortness of breath and found to be hypoxic. Patient does have COPD and is a current every day smoker. workup in hospital included a chest x-ray which showed no acute abnormali
--- NOTE | 2023-09-06 08:43 | PM.IMPN ---
Progress Note: A&P Assessment and Plan (1) Acute hypoxic respiratory failure: Code(s): J96.01 - Acute respiratory failure with hypoxia Status: Acute Assessment and Plan: 09/05/23: albuterol nebulizer treatment given in ER and will continue Q6 titrate O2 to sats above 90%, on 2L this am Dexamethasone started in ER, will continue for 10 day course low risk for infection at this time, will not start AB at this time CXR showed lungs are clear, without evidence of focal consolidation or pleural effusion. ? 09/06/23: ? continue albuterol nebulizer treatment Q 6, will add p.r.n. albuterol nebulizer as needed for shortness of breaths q.6 patient is currently on 2 L nasal cannula, he does not use oxygen at home, titrate to keep sats above 92% continue the dexamethasone and remdesivir, this is day 3 of treatment (2) COPD (chronic obstructive pulmonary disease): Code(s): J44.9 - Chronic obstructive pulmonary disease, unspecified Status: Acute Assessment and Plan: 09/05/23: holding LAMA and LABAs for now albuterol nebulizer treatment given in ER and will continue Q6 O2 by nasal cannula, will titrate O2 to sats above 90% PT seeing may need to go home on oxygen, will order home eval prior to discharge 09/06/23: no change to current treatment plan (3) COVID-19: Code(s): U07.1 - COVID-19 Status: Acute Assessment and Plan: 09/05/23: Started on remdesivir for 5 days as he is high risk with COPD droplet precautions monitor liver panel neb treatments ordered, 02 to titrate to sats above 90% 09/06/23: patient is on day 3 of 5 of remdesivir, and 3 of 10 the dexamethasone 6 mg continue isolation precaution neb treatments ordered Q 6 hour and p.r.n. titrate to keep oxygen sats above 92%, patient currently on 2 L nasal cannula (4) Hypertension: Code(s): I10 - Essential (primary) hypertension Status: Acute Assessment and Plan: 09/05/23: continue amlodipine, metoprolol and diuretic home meds for BP control creatinine 1.1 on admission UA culture pending 09/06/23: blood pressure today ranging 145/88 to 165/96, patient is on all of his home medications urine culture negative creatinine 1.0 continue to monitor (5) Nicotine dependence: Code(s): F17.200 - Nicotine dependence, unspecified, uncomplicated Status: Acute Assessment and Plan: 09/05/23: smokes 1/2 pack a day, discussed smoking cessation may order nicotine patch if needed while inpatient 09/06/23: no change to current treatment plan (6) Heart failure: Code(s): I50.9 - Heart failure, unspecified Status: Acute Assessment and Plan: 09/05/23: BNP on admission 697, troponin WNL, BNP trending down on 09/05 sodium, calcium and potassium WNL EKG in ER showed SR, possible right ventricular conduction delay continue to monitor labs 09/06/23: proBNP today is 287 potassium 3.8, sodium 139 continue to monitor daily labs weigh daily Time Spent With Patient Time with patient: 25 - 35 minutes Subjective Date/time seen: 09/06/23 08:43 Interval history: 09/06/2023: Interval history: This is a 68-year-old male who presented to the hospital via EMS with increasing shortness of breath and found to be hypoxic. Patient does have COPD and is a current every day smoker. workup in hospital included a chest x-ray which showed no acute abnormality. He had a respiratory panel which shows positive for COVID 19, influenza A and B negative. UA revealed 3+ protein, 1+ urine blood, many urine rbc's and wbc's. I urine culture was sent and on the final read is showing no growth. Of note patient had an echo on March 29, 2023 which show on normal RV and LV function with an estimated EF of 60-65%. Patient currently treated with dexamethasone 6 mg IV push daily and remdesivir IV. On examination today patient is alert and o
[2023-09-06 09:39] LABS: Alanine Aminotransferase 29 U/L (6-50); Aspartate Amino Transferase 32 U/L (17-59)
[2023-09-06] MEDS: REMDESIVIR 100 MG/NS 250 ML 100 MG/250 ML BAG 250 MG IVPB (10:36)
[2023-09-06] MEDS: BENZONATATE 100 MG CAPSULE 200 MG PO (17:03)
[2023-09-06] MEDS: QUEtiapine FUMARATE 12.5 MG TABLET PO (21:29)
[2023-09-06] MEDS: MELATONIN 5 MG TABLET PO (21:30)
[2023-09-07] VITALS (19 sets, daily range): BP systolic 153–190; BP diastolic 77–107; PULSE 67–82; RESP 14–22; TEMP 36.5–36.7; O2SAT 98–100
[2023-09-07] MEDS: ALBUTEROL SULFATE NEB 2.5 MG/3 ML INH INHALATION ×4 (02:04→21:25)
[2023-09-07] MEDS: IPRATROPIUM BR 0.02% INH SOLN 0.5 MG/2.5 ML VIAL INHALATION ×5 (02:04→21:25)
[2023-09-07] MEDS: HYDROcodone/acetaminophen (*CRX) 7.5-325 MG TABLET 1 TAB PO ×3 (05:57→21:22)
[2023-09-07 06:52] LABS: Hematocrit 39.2 % (42.0-52.0); Hemoglobin 12.5 g/dL (14.0-18.0); Mean Corpuscular HGB Conc 31.9 g/dl (32-36); Mean Corpuscular Hemoglobin 28.5 pg (26-34); Mean Corpuscular Volume 89.3 fl (80-100); Mean Platelet Volume 9.5 fl (7.4-10.4); Platelet Count Result 244 k/mm3 (150-375); Red Blood Count 4.39 M/mm3 (4.6-6.20); Red Cell Distribution Width 14.2 % (11.5-14.5); White Blood Count 10.2 K/mm3 (4.5-10.0)
[2023-09-07] MEDS: METOPROLOL TARTRATE 25 MG TABLET PO ×2 (09:24→21:22)
[2023-09-07] MEDS: APIXABAN 5 MG TABLET PO ×2 (09:24→21:23)
[2023-09-07] MEDS: TAMSULOSIN HCL 0.4 MG CAPSULE BY MOUTH (09:24)
[2023-09-07] MEDS: ASPIRIN 81 MG CHEWABLE TABLET PO (09:24)
[2023-09-07] MEDS: amLODIPine BESYLATE 5 MG TABLET 10 MG PO (09:24)
[2023-09-07] MEDS: GABAPENTIN 300 MG CAPSULE 600 MG PO ×3 (09:24→16:55)
[2023-09-07] MEDS: CALCIUM CARBONATE (TUMS) 500 MG (200 MG ELEMENTAL) PO (09:24)
[2023-09-07] MEDS: TRIAMTERENE 37.5 MG/HCTZ 25 MG (MAXZIDE) TABLET 1 TAB PO (09:25)
[2023-09-07] MEDS: BENZONATATE 100 MG CAPSULE 200 MG PO ×3 (09:25→16:53)
[2023-09-07] MEDS: cloNIDine HCL 0.1 MG TABLET 0.3 MG PO ×2 (09:25→21:22)
[2023-09-07] MEDS: REMDESIVIR 100 MG/NS 250 ML 100 MG/250 ML BAG 250 MG IVPB (09:45)
--- NOTE | 2023-09-07 14:34 | PM.IMPN ---
Progress Note: A&P Assessment and Plan (1) Acute hypoxic respiratory failure: Code(s): J96.01 - Acute respiratory failure with hypoxia Status: Acute Assessment and Plan: Secondary to COVID pneumonia -continued Decadron, remdesivir and oxygen as needed -continue breathing treatments -on Eliquis for DVT prevention (2) COPD (chronic obstructive pulmonary disease): Code(s): J44.9 - Chronic obstructive pulmonary disease, unspecified Status: Acute Assessment and Plan: Continue breathing treatments (3) COVID-19: Code(s): U07.1 - COVID-19 Status: Acute Assessment and Plan: Continue remdesivir, dexamethasone and oxygen as needed -patient is improving as expected -Eliquis for DVT prophylaxis (4) Hypertension: Code(s): I10 - Essential (primary) hypertension Status: Acute Assessment and Plan: Patient has been running high well lately -continue amlodipine, metoprolol, clonidine home meds for BP control -hydralazine PRN (5) Nicotine dependence: Code(s): F17.200 - Nicotine dependence, unspecified, uncomplicated Status: Acute Assessment and Plan: Does not want nicotine patch (6) Heart failure: Code(s): I50.9 - Heart failure, unspecified Status: Acute Assessment and Plan: Chronic but pt appears euvolemic -continue metoprolol Plan Patient is on Eliquis at home for history of DVT Time Spent With Patient Time with patient: 25 - 35 minutes Subjective Date/time seen: 09/07/23 14:34 Interval history: Pt is a 68 y/o male here for COVID pneumonia. Patient was seen today and states he is feeling pretty good. He has moments where he feels like he is not breathing as well as he should be any gives him anxiety. He has been utilizing the oxygen as needed. He denies chest pain, fevers, chills, nausea or vomiting. He is eating and drinking fine. Review of Systems Review of Systems: All systems reviewed & are unremarkable except as noted in HPI and below Exam Narrative: General: Well developed well nourished patient in NAD HEENT: normocephalic Neck: supple Neuro: Alert and oriented x 4 CV:RRR Resp: Decreased breath sounds bilaterally, slight wheeze Abd: Soft, non distended. No pain to palpation. Positive bowel sounds Extremities: No swelling, erythema, or pain to palpation. Objective Data Vital Signs Vital Signs: Vital Signs - 24 hr 09/06/23 16:00 09/06/23 20:08 09/06/23 20:08 Temperature 96.8 F L Pulse Rate 67 74 Respiratory Rate 18 22 H Blood Pressure 150/94 H Pulse Oximetry 94 97 Oxygen Delivery Nasal Cannula Oxygen Flow Rate 2 Fraction of Inspired Oxygen 09/06/23 20:20 09/06/23 20:00 09/06/23 23:40 Temperature 99.1 F 99 F Pulse Rate 70 80 79 Respiratory Rate 20 20 20 Blood Pressure 155/86 H 145/79 H Pulse Oximetry 95 94 Oxygen Delivery Oxygen Flow Rate Fraction of Inspired Oxygen 09/07/23 02:07 09/07/23 02:18 09/06/23 20:00 Temperature Pulse Rate 74 74 Respiratory Rate 20 22 H Blood Pressure Pulse Oximetry 94 Oxygen Delivery Room Air Oxygen Flow Rate Fraction of Inspired Oxygen 09/07/23 04:00 09/07/23 07:48 09/07/23 07:48 Temperature 98.1 F Pulse Rate 74 72 Respiratory Rate 20 20 Blood Pressure 164/90 H Pulse Oximetry 100 100 Oxygen Delivery Nasal Cannula Oxygen Flow Rate 1.5 Fraction of Inspired Oxygen 26 09/07/23 08:10 09/07/23 09:24 09/07/23 08:00 Temperature 97.8 F Pulse Rate 76 72 82 Respiratory Rate 20 18 Blood Pressure 160/77 H Pulse Oximetry 98 Oxygen Delivery Oxygen Flow Rate Fraction of Inspired Oxygen 09/07/23 09:00 09/07/23 13:14 Temperature Pulse Rate 74 Respiratory Rate 20 Blood Pressure Pulse Oximetry 98 Oxygen Delivery Nasal Cannula Oxygen Flow Rate 2 Fraction of Inspired Oxygen Intake/Output
[2023-09-07] MEDS: hydrALAZINE HCL 20 MG/ML VIAL 10 MG IV PUSH (17:00)
[2023-09-07] MEDS: LORazepam INJ (*CRX) 2 MG/ML VIAL 0.5 MG IV PUSH (18:01)
[2023-09-07] MEDS: ALPRAZolam (*CRX) 0.25 MG TABLET PO (21:22)
[2023-09-07] MEDS: QUEtiapine FUMARATE 12.5 MG TABLET PO (21:22)
[2023-09-07] MEDS: MELATONIN 5 MG TABLET PO (21:23)
[2023-09-08] VITALS (19 sets, daily range): BP systolic 133–173; BP diastolic 75–92; PULSE 58–108; RESP 18–20; TEMP 35.8–36.7; O2SAT 94–100
[2023-09-08] MEDS: IPRATROPIUM BR 0.02% INH SOLN 0.5 MG/2.5 ML VIAL INHALATION ×5 (01:58→19:24)
[2023-09-08] MEDS: ALBUTEROL SULFATE NEB 2.5 MG/3 ML INH INHALATION ×4 (01:58→19:24)
[2023-09-08 07:43] LABS: Alanine Aminotransferase 44 U/L (6-50); Albumin Level 3.3 g/dL (3.5-5.1); Alkaline Phosphatase 70 U/L (38-126); Anion Gap 5 mmol/L (8-16); Aspartate Amino Transferase 56 U/L (17-59); Bilirubin,Total 0.4 mg/dL (0.2-1.3); Blood Urea Nitrogen 27 mg/dL (9-20); Calcium 9.2 mg/dL (8.4-10.2); Carbon Dioxide 23 mmol/L (22-30); Chloride 107 mmol/L (98-107); Estimated CRCL calculation 79 ml/min; Estimated Glomerular Filt Rate > 60; Glucose 100 mg/dL (65-110); Sodium 135 mmol/L (137-145)
[2023-09-08 07:44] LABS: INR 1.1; Prothrombin Time 14.6 Seconds (11.1-14.7)
[2023-09-08] MEDS: TRIAMTERENE 37.5 MG/HCTZ 25 MG (MAXZIDE) TABLET 1 TAB PO (08:13)
[2023-09-08] MEDS: amLODIPine BESYLATE 5 MG TABLET 10 MG PO (08:13)
[2023-09-08] MEDS: ASPIRIN 81 MG CHEWABLE TABLET PO (08:13)
[2023-09-08] MEDS: HYDROcodone/acetaminophen (*CRX) 7.5-325 MG TABLET 1 TAB PO ×2 (08:13→17:56)
[2023-09-08] MEDS: BENZONATATE 100 MG CAPSULE 200 MG PO ×3 (08:13→17:57)
[2023-09-08] MEDS: GABAPENTIN 300 MG CAPSULE 600 MG PO ×3 (08:13→17:57)
[2023-09-08] MEDS: cloNIDine HCL 0.1 MG TABLET 0.3 MG PO ×2 (08:13→17:57)
[2023-09-08] MEDS: CALCIUM CARBONATE (TUMS) 500 MG (200 MG ELEMENTAL) PO (08:14)
[2023-09-08] MEDS: APIXABAN 5 MG TABLET PO ×2 (08:14→20:56)
[2023-09-08] MEDS: ALPRAZolam (*CRX) 0.25 MG TABLET PO ×3 (08:14→17:57)
[2023-09-08] MEDS: TAMSULOSIN HCL 0.4 MG CAPSULE BY MOUTH (08:14)
[2023-09-08] MEDS: METOPROLOL TARTRATE 25 MG TABLET PO ×2 (08:14→20:56)
[2023-09-08] MEDS: REMDESIVIR 100 MG/NS 250 ML 100 MG/250 ML BAG 250 MG IVPB (11:13)
--- NOTE | 2023-09-08 11:54 | PM.IMPN ---
Progress Note: A&P Assessment and Plan (1) Acute hypoxic respiratory failure: Code(s): J96.01 - Acute respiratory failure with hypoxia Status: Acute Assessment and Plan: Secondary to COVID pneumonia -continued Decadron transition to PO, remdesivir finished and oxygen as needed -continue breathing treatments -on Eliquis for DVT prevention (2) COPD (chronic obstructive pulmonary disease): Code(s): J44.9 - Chronic obstructive pulmonary disease, unspecified Status: Acute Assessment and Plan: Continue breathing treatments (3) COVID-19: Code(s): U07.1 - COVID-19 Status: Acute Assessment and Plan: Continue dexamethasone and oxygen as needed -patient is improving as expected -Eliquis for DVT prophylaxis (4) Hypertension: Code(s): I10 - Essential (primary) hypertension Status: Acute Assessment and Plan: Patient has been running high well lately -continue amlodipine, metoprolol, clonidine home meds for BP control -hydralazine PRN (5) Nicotine dependence: Code(s): F17.200 - Nicotine dependence, unspecified, uncomplicated Status: Acute Assessment and Plan: Does not want nicotine patch (6) Heart failure: Code(s): I50.9 - Heart failure, unspecified Status: Acute Assessment and Plan: Chronic but pt appears euvolemic -continue metoprolol Plan Patient is on Eliquis at home for history of DVT Subjective Date/time seen: 09/08/23 11:54 Interval history: Pt is a 68 YO male here for COVID pneumonia. Patient states he continues to feel better. He had what he calls a panic attack yesterday after some coughing and bronchospasm. He has been utilizing the oxygen as needed at 2L but can speak in full sentences and conversation without it or getting winded. He denies chest pain, fevers, chills, nausea or vomiting. He is eating and drinking fine. Will transition to PO steroids in hopes to d/c home soon. Review of Systems Review of Systems: All systems reviewed & are unremarkable except as noted in HPI and below Exam Narrative: General: Well developed, well nourished patient in NAD HEENT: normocephalic, EOM intact, PERRLA Neck: supple, no masses or lymph nodes palpated Neuro: Alert and oriented x 4, no focal deficits CV:RRR Resp: Decreased breath sounds bilaterally, mild expiratory wheezes Abd: Soft, non distended. No pain to palpation. Positive bowel sounds Extremities: No swelling, erythema, or pain to palpation. Objective Data Vital Signs Vital Signs: Vital Signs - 24 hr 09/07/23 13:14 09/07/23 12:00 09/07/23 15:39 Temperature 97.9 F 97.8 F Pulse Rate 74 67 68 Respiratory Rate 20 14 16 Blood Pressure 168/107 H 160/92 H Pulse Oximetry 100 100 Oxygen Delivery Oxygen Flow Rate Fraction of Inspired Oxygen 09/07/23 17:00 09/07/23 17:35 09/07/23 17:55 Temperature Pulse Rate 81 74 Respiratory Rate 22 H 20 Blood Pressure 175/90 H Pulse Oximetry Oxygen Delivery Oxygen Flow Rate Fraction of Inspired Oxygen 09/07/23 17:30 09/07/23 21:25 09/07/23 21:38 Temperature Pulse Rate 82 81 77 Respiratory Rate 22 H 19 20 Blood Pressure 190/97 H Pulse Oximetry 100 Oxygen Delivery Oxygen Flow Rate Fraction of Inspired Oxygen 09/07/23 21:39 09/07/23 20:00 09/08/23 00:00 Temperature 97.7 F 97.9 F Pulse Rate 70 79 Respiratory Rate 20 20 Blood Pressure 153/86 H 147/83 H Pulse Oximetry 100 100 100 Oxygen Delivery Nasal Cannula Oxygen Flow Rate 2 Fraction of Inspired Oxygen 09/08/23 01:59 09/08/23 02:12 09/07/23 20:00 Temperature Pulse Rate 79 77 Respiratory Rate 20 20 Blood Pressure Pulse Oximetry 100 Oxygen Delivery Nasal Cannula Oxygen Flow Rate 2 Fraction of Inspired Oxygen 09/08/23 04:00 09/08/23 06:31 09/08/23 07:58 Temperature 98.1 F 96.8 F L Pulse R
[2023-09-08] MEDS: QUEtiapine FUMARATE 12.5 MG TABLET PO (20:56)
[2023-09-08] MEDS: MELATONIN 5 MG TABLET PO (20:57)
[2023-09-09] VITALS (15 sets, daily range): BP systolic 126–169; BP diastolic 70–99; PULSE 55–100; RESP 16–20; TEMP 36.2–36.6; O2SAT 91–100
[2023-09-09] MEDS: IPRATROPIUM BR 0.02% INH SOLN 0.5 MG/2.5 ML VIAL INHALATION ×3 (01:15→13:30)
[2023-09-09] MEDS: ALBUTEROL SULFATE NEB 2.5 MG/3 ML INH INHALATION ×3 (01:15→13:30)
[2023-09-09] MEDS: HYDROcodone/acetaminophen (*CRX) 7.5-325 MG TABLET 1 TAB PO ×3 (01:55→14:10)
[2023-09-09] MEDS: hydrALAZINE HCL 20 MG/ML VIAL 10 MG IV PUSH (08:12)
[2023-09-09] MEDS: GABAPENTIN 300 MG CAPSULE 600 MG PO ×2 (08:12→14:06)
[2023-09-09] MEDS: ASPIRIN 81 MG CHEWABLE TABLET PO (08:12)
[2023-09-09] MEDS: DEXAMETHASONE 2 MG TABLET 6 MG PO (08:13)
[2023-09-09] MEDS: TRIAMTERENE 37.5 MG/HCTZ 25 MG (MAXZIDE) TABLET 1 TAB PO (08:13)
[2023-09-09] MEDS: BENZONATATE 100 MG CAPSULE 200 MG PO ×2 (08:13→14:06)
[2023-09-09] MEDS: METOPROLOL TARTRATE 25 MG TABLET PO (08:13)
[2023-09-09] MEDS: TAMSULOSIN HCL 0.4 MG CAPSULE BY MOUTH (08:14)
[2023-09-09] MEDS: amLODIPine BESYLATE 5 MG TABLET 10 MG PO (08:14)
[2023-09-09] MEDS: cloNIDine HCL 0.1 MG TABLET 0.3 MG PO (08:14)
[2023-09-09] MEDS: APIXABAN 5 MG TABLET PO (08:14)
--- NOTE | 2023-09-09 14:37 | HOMEO2EVAL ---
Evaluation was performed at [facility] Home Oxygen Evaluation RC: Home Oxygen (O2) Evaluation Start: 09/09/23 11:06 Freq: ONCE Status: Active Protocol: RPE Activity Type Activity Date Activity User E-sign Co-sign Detail Recorded Client Recorded Date Recorded By Document 09/09/23 14:25 KRM [email or web address] 09/09/23 14:37 KRM Document 09/09/23 14:27 KRM [email or web address] 09/09/23 14:37 KRM Document 09/09/23 14:29 KRM [email or web address] 09/09/23 14:37 KRM 09/09/23 09/09/23 09/09/23 14:25 14:27 14:29 Home O2 Evaluation [Oxygen] -Test Phase Resting Exercise Exercise -Oxygen Delivery Room Air Room Air Room Air [Pulse Oximetry] -Pulse Oximetry (90-100 %) 94 93 91 [Pulse Rate] -Pulse Rate (60-100 beats/min) 88 92 100 [Evaluation] -Activity Tolerance Good Good [Exercise] -Ambulation Distance (feet) 50 -Ambulation Distance (meters) 15.23 [Charges] -Treatment Charges O2 Evaluation - Inpatient
--- NOTE | 2023-09-09 15:52 | PM.DS ---
DS: Admitting Diagnosis Discharge Date 09/09/23 Admitting Diagnosis covid 19, hypoxia DS: Discharge Diagnosis Discharge Diagnosis (1) Acute hypoxic respiratory failure: Code(s): J96.01 - Acute respiratory failure with hypoxia Status: Acute Assessment and Plan: Secondary to COVID pneumonia -continued Decadron transition to PO -resume at home LAMA, LABA -on Eliquis for DVT prevention -O2 home eval done, no need for at home O2 (2) COPD (chronic obstructive pulmonary disease): Code(s): J44.9 - Chronic obstructive pulmonary disease, unspecified Status: Acute Assessment and Plan: Continue home regimen discussed smoking cessation (3) COVID-19: Code(s): U07.1 - COVID-19 Status: Acute Assessment and Plan: Continue dexamethasone for 4 more doses at home -Eliquis for DVT prophylaxis (4) Hypertension: Code(s): I10 - Essential (primary) hypertension Status: Acute Assessment and Plan: -continue amlodipine, metoprolol, clonidine home meds for BP control (5) Nicotine dependence: Code(s): F17.200 - Nicotine dependence, unspecified, uncomplicated Status: Acute Assessment and Plan: Does not want nicotine patch (6) Heart failure: Code(s): I50.9 - Heart failure, unspecified Status: Acute Assessment and Plan: Chronic but pt appears euvolemic -continue metoprolol Plan Patient is on Eliquis at home for history of DVT DS: Summary Hospital Course Reason for hospitalization: COVID 19, hypoxia Hospital Course: Patient with PMH history of COPD reported that he developed worsening of his shortness of breath?while at home in the afternoon. Patient has felt like he has not been able to shake sickness since April when he traveled to see family. The patient did report that he has been wheezing at home, and has been compliant with his inhalers although has had to use them more frequently. He does not use supplemental oxygen at home. He admits to smoking 1/2 pack per day, wants to quit but just can't seem to do it. He reports he has not been socializing as much and feels some depression. He reports he has talked to someone at the [facility] about this, but is not on any medications. Subsequently developed COVID pneumonia.?Patient states he continues to feel better and is ready to go home today. He had what he calls a panic attack yesterday after some coughing and bronchospasm. He has been utilizing the oxygen as needed at 2L but can speak in full sentences and conversation without it or getting winded.? This morning he is 100% on room air. Respiratory home O2 eval done as patient gets worried when he feels mild dyspnea after activity or walking around his room. He denies chest pain, fevers, chills, nausea or vomiting.? He is eating and drinking fine. Will send him home on his last doses of dexa and encourage to follow up with his PCP. Time spent discussing smoking cessation with patient: more than 10 minutes Status at Discharge Functional status at discharge: independent ambulation Overall status at discharge: patient is progressing back to baseline Time Spent with Patient Time attestation: Total time spent providing and/or coordinating discharge services: Exam Narrative: General: Well developed, well nourished patient in NAD HEENT: normocephalic, EOM intact, PERRLA Neck: supple, no masses or lymph nodes palpated Neuro: Alert and oriented x 4, no focal deficits CV:RRR Resp: lung sounds clear bilaterally, mild expiratory wheezes Abd: Soft, non distended. No pain to palpation. Positive bowel sounds Extremities: No swelling, erythema, or pain to palpation. Discharge Plan Discharge Attending physician on discharge: Darwin Peñaloza Discharging Clinician: Madina Durham Anticipated Discharge Date/Time: 09/09/23 15:28 Patient Disposition: Home, Self-Care Activity: as tolerated Di
== END 2023-09-09 16:40 | disposition home or self-care (01) | DRG 177 ==
LOC: ANHED 09-04 03:29 → ANH3MEDSUR 09-04 04:18
PROVIDERS: Nurse Practitioner Acute Care; Admitting Provider Internal Medicine; Emergency Provider Emergency Medicine; PCP Family Medicine; Visit Provider Nurse Practitioner
DX: U07.1 COVID-19 (principal); J12.82 Pneumonia due to coronavirus disease 2019; J96.01 Acute respiratory failure with hypoxia; J44.0 Chronic obstructive pulmonary disease with (acute) lower respiratory infection; I11.0 Hypertensive heart disease with heart failure; I50.9 Heart failure, unspecified; F17.210 Nicotine dependence, cigarettes, uncomplicated; Z79.01 Long term (current) use of anticoagulants; Z79.82 Long term (current) use of aspirin
CPT/HCPCS: 36415; 71046; 80048; 80053; 80076; 81001; 83605; 83880; 84145; 84450; 84460; 84484; 85025; 85027; 85610; 87086; 87636; 93005; 94618; 94640; 96374; 96375; 96376; 97110; 97116; 97161; 99285; A9270; G0378; J0248; J0360; J1100; J2060; J2930; J8540